=== PATIENT | female | born 1960 | race Caucasian/White ===

== ENCOUNTER → 2020-04-17 10:36 | Outpatient (CLI) | payer OTHER, SELFPAY ==
--- NOTE | ~2020-04-17 | MM_ITS ---
EXAMINATION: MM screening [facility] BI w belinda HISTORY: Screening mammogram TECHNIQUE: Craniocaudal and mediolateral oblique 3-D tomosynthesis images were obtained and synthetic 2-D images were generated. CAD analysis was submitted and interpreted. COMPARISON: 07/13/2018, 02/05/2017 bilateral digital screening mammogram examinations BREAST PARENCHYMAL COMPOSITION: There are scattered areas of fibroglandular density. FINDINGS: There is no evidence of suspicious mass, calcification, or architectural distortion to sugg est malignancy in either breast. There has been no suspicious interval change. IMPRESSION: 1. No mammographic evidence of malignancy. 2. Recommend routine screening mammography in one year. BI-RADS Category 1: Negative Reviewed, dictated and finalized at location A.
== END ==
PROVIDERS: PCP Nurse Practitioner Family; Visit Provider Nurse Practitioner Obstetrics & Gynecology
DX: Z12.31 Encounter for screening mammogram for malignant neoplasm of breast (principal)
CPT/HCPCS: 77063; 77067

== ENCOUNTER → 2020-05-17 14:56 | Outpatient (CLI) | payer OTHER, SELFPAY ==
--- NOTE | ~2020-05-17 | XR_ITS ---
XR knee LT 3V 05/17/2020 15:28 INDICATION: Left knee pain PROCEDURE: 3 views left knee COMPARISON: No prior studies for comparison. FINDINGS: Fracture, dislocation or subluxation is not identified. The soft tissues appear within norm al limits. No foreign bodies are identified. IMPRESSION: 1: NO ACUTE BONE OR JOINT ABNORMALITY IDENTIFIED. Reviewed, dictated and finalized at location B.
== END ==
PROVIDERS: PCP Family Medicine; Visit Provider Family Medicine
DX: M25.562 Pain in left knee (principal)
CPT/HCPCS: 73562

== ENCOUNTER → 2020-07-06 11:01 | Outpatient (CLI) | payer OTHER, SELFPAY ==
--- NOTE | ~2020-07-06 | US_ITS ---
EXAMINATION: US abdomen complete EXAM DATE: 07/06/2020 11:27 INDICATION: Elevated liver enzymes TECHNIQUE: Multiple grayscale and Doppler images of the complete abdomen were obtained (by a technolo gist who performed the scan) and subsequently reviewed. There is no prior study for comparison. FINDINGS: The abdominal aorta is normal in caliber. Visualized portion IVC is patent. The pancreatic head a nd body are normal in appearance. The pancreatic tail is not visualized. The liver has normal echogenicity and contour. There are no focal liver lesions identified. There is no evidence of intrahepatic biliary duct dilation. Portal venous flow was seen in the hepatopedal , normal direction and has normal Doppler waveform. Common bile duct measures 3 mm, which is normal. The gallbladder wall is normal in thickness, with ex pected amount of distention. No sonographic evidence of pericholecystic fluid. There is no cholelit hiases. Technologist performing exam reports patient did not demonstrate sonographic Salazar's sign. Please note that this sign is less reliable in patients who have received pain medication. Right kidney: There is normal contour and echogenicity. It measures 11.4 x 5.2 x 6.5 centimeters. There are no focal renal lesions identified. There is no hydronephrosis. Left kidney: There is normal contour and echogenicity. It measures 11.5 x 5.3 x 5.2 centimeters. T here are no focal renal lesions identified. There is no hydronephrosis. The spleen measures 12 centimeters and is morphologically normal. IMPRESSION: 1. Unremarkable complete abdominal ultrasound exam. Reviewed, dictated and finalized at location B. PATIONAL HEALTH COORDINATOR
== END ==
PROVIDERS: PCP Internal Medicine; Visit Provider Internal Medicine
DX: R74.8 Abnormal levels of other serum enzymes (principal)
CPT/HCPCS: 76700

== ENCOUNTER → 2020-07-19 12:40 | Outpatient (CLI) | payer OTHER, SELFPAY ==
--- NOTE | ~2020-07-19 | MR_ITS ---
EXAMINATION: MR knee LT wo con DATE: 07/19/2020 13:17 INDICATION: Left knee pain TECHNIQUE: Magnetic resonance imaging (MRI) of the left knee was performed without intravenous contra st. Sequences included coronal PD-weighted FSE, coronal PD-weighted FS FSE, sagittal T2-weighted FSE , sagittal PD-weighted FS FSE and axial PD weighted fat saturated FSE. COMPARISON: Left knee radiographs dated 05/17/2020 FINDINGS: Medial compartment: Slight medial extrusion of the medial meniscal body with mild fraying along the inner free edge of th e posterior horn. Partial-thickness cartilage loss along the weightbearing medial femoral condyle and medial tibial plateau. Superimposed deep chondral ulceration with mild subarticular edema at the donny ction of the anterior to central weightbearing medial femoral condyle. Additional mild partial thickn ess fissuring without degenerative subchondral changes at the anterior weightbearing medial femoral c ondyle. Lateral compartment: Lateral meniscus is normal. Partial-thickness cartilage loss with smooth chondral surface along the w eightbearing lateral femoral condyle. Partial thickness cartilage loss with mild chondral surface reg ularity along the posterior aspect the lateral tibial plateau. Preserved cartilage thickness but with deep fissuring at the anterior to central lateral tibial plateau. Patellofemoral compartment: Deep chondral fissuring without degenerative subchondral changes at both the medial and lateral thomas lar facets. There is focal marrow edema along the inferomedial aspect of the patella along what appea rs to be a very small and facet which could be due to overlying chondromalacia or potentially bone co ntusion or medial patellofemoral retinacular injury although the retinaculum itself appears normal an d there is no surrounding soft tissue edema in this is considered less likely. Trochlear cartilage is normal. Ligaments and tendons: Anterior and posterior cruciate ligaments are normal. The medial collateral ligament and fibular viraj ateral ligament complex are normal. The extensor mechanism is normal. The visualized medial and later al hamstring tendons as well as the iliotibial band are normal. Fluid: Small left knee joint effusion. No loose osteochondral bodies identified. Osseous/other: Marrow signal is normal aside from the previous noted subarticular edema at the medial femoral condyl e and edema at the inferomedial patella. No fracture or pathologic marrow replacing process. IMPRESSION: 1. 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 2. Marrow edema at the inferomedial patella which could be related to either overlying high-grade cho ndromalacia at the facet bone contusion. 3. Mild fraying along the inner free edge of the posterior horn of the medial meniscus with slight me dial extrusion of the body. Reviewed, dictated and finalized at location H. X FOAM WORKER IMPRESSION: 1. Mild tricompartmental osteoarthritis with high-grade chondromalacia along th e weightbearing medial femoral condyle and moderate grade chondral malacia in t he lateral and patellofemoral compartments. 2. Marrow edema at the inferomedial patella which could be related to either ov erlying high-grade chondromalacia at the facet bone contusion. 3. Mild fraying along the inner free edge of the posterior horn of the medial m eniscus with slight medial extrusion of the body.
== END ==
PROVIDERS: PCP Internal Medicine; Visit Provider Internal Medicine
DX: M17.12 Unilateral primary osteoarthritis, left knee (principal)
CPT/HCPCS: 73721

== ENCOUNTER 2020-07-31 07:56 | Outpatient (RCR) | payer OTHER, SELFPAY ==
--- NOTE | 2020-07-31 08:44 | PTOPEVAL ---
Thank you for referring Donna Herbert to [facility].? The patient is scheduled to be seen for therapy? ____x/week for ___ weeks. Please review, sign, date and return this plan of care SHERIN. I agree with and certify that the following plan of care is medically necessary. Referring Physician Date Admitting Provider: Attending Provider: Andria Ba MD Referring Provider: *PT Outpatient Evaluation Start: 07/31/20 08:06 Freq: Status: Active Protocol: Document 07/31/20 08:05 PALMER (Rec: 07/31/20 08:43 [facility] [id number]) Therapy Assessment Status Assessment Status Assessment Status Evaluation Evaluation Information Problem Diagnosis L knee pain, DJD, medial mensicus tear Onset 07/24/20 Additional Evaluation Detail LEFS = Subjective Information patient reports she injured Query Text:As Reported By Patient/ her knee sometime in march of Family this year playing pickleball. she reports she did not have any injury during the game, but reports later that night she began having issues getting into bed. she reports she is still playing pickleball and moving around actively. however, she reports she has pain in the L knee when playing, and increased time to complete other activities. patient reports she has increased pain with going down steps. she reports the pain comes and goes. she reports no pain at rest. she reports she also has pain with twisting/pivoting movements of the knee. Prior Level of Function Comments Additional Prior Level of Function prior to injury, patient Comments reports no issues with her knee. she reports beinga ble to play pickleball, work around the house, and go up and down steps frequently. Pain Assessment Timing of Pain Assessment Timing of Pain Assessment Assessment Pain Scale Pain Scale Used Numeric (1 - 10) Self Report Pain Assessment Left Knee(s) Reported Pain Level 0 Lowest Pain Intensity 0 Greatest Pain Intensity 5 Pain Score Pain Score 0: Self Report Intervent
--- NOTE | 2020-10-23 11:09 | PCPTNOTE ---
10/23/20 - patient has not been to therapy in over 2 months. as of this date, patient will be DC'd from skilled PT services and all progress towards goals will be taken from most recent evaluation/note. PALMER
== END 2020-08-09 11:24 | disposition home or self-care (01) ==
LOC: CHSPT 07:56
PROVIDERS: PCP Internal Medicine; Visit Provider Internal Medicine
DX: M17.12 Unilateral primary osteoarthritis, left knee (principal); S83.8X2A Sprain of other specified parts of left knee, initial encounter
CPT/HCPCS: 97110; 97161; 97530

== ENCOUNTER 2020-08-16 11:42 | Outpatient (CLI) | payer OTHER, SELFPAY ==
[2020-08-16 13:12] LABS: SARS-CoV-2 Ag Negative (Negative)
== END 2020-08-16 11:43 | disposition home or self-care (01) ==
LOC: CHSLAB 11:44
PROVIDERS: PCP Internal Medicine; Visit Provider Internal Medicine
DX: R51.9 Headache, unspecified (principal); R09.81 Nasal congestion; Z20.828 Contact with and (suspected) exposure to other viral communicable diseases
CPT/HCPCS: 87426

== ENCOUNTER 2020-11-29 08:54 | Outpatient (CLI) | payer OTHER, SELFPAY ==
[2020-11-29 09:02] LABS: Hematocrit 37.1 % (35.0-49.0); Hemoglobin 12.4 g/dL (12.0-15.0); Mean Corpuscular HGB Conc 33.4 g/dL (32.0-36.0); Mean Corpuscular Hemoglobin 29.9 pg (27.0-31.0); Mean Corpuscular Volume 89.4 fL (78.0-102.0); Mean Platelet Volume 8.3 fl (9.2-11.8); Platelet Count Result 297 K/mm3 (150-420); Red Blood Count 4.15 M/mm3 (4.20-5.40); Red Cell Distribution Width 12.5 % (11.6-14.4); White Blood Count 3.8 K/mm3 (4.8-10.8)
[2020-11-29 09:20] LABS: Band Neutrophils Percent 0 % (0-6); Lymphocytes Absolute Manual 1.36 K/mm3 (1.1-4.5); Lymphocytes Percent Manual 36 % (18-44); Neutrophils Percent Manual 50 % (46-73); Total Cells Counted 100
[2020-11-29 09:21] LABS: Eosinophils Absolute Manual 0.15 K/mm3 (0.02-0.5); Eosinophils Percent Manual 4 % (1-6); Monocytes Absolute Manual 0.38 K/mm3 (0.1-0.90); Monocytes Percent Manual 10 % (3-9); Platelet Estimate Adequate (Adequate)
== END 2020-11-29 08:55 | disposition home or self-care (01) ==
LOC: CHSLAB 08:55
PROVIDERS: PCP Internal Medicine; Visit Provider Internal Medicine
DX: D69.6 Thrombocytopenia, unspecified (principal)
CPT/HCPCS: 36415; 85025

== ENCOUNTER 2021-04-18 08:17 | Outpatient (CLI) | payer OTHER, SELFPAY ==
--- NOTE | ~2021-04-18 | DEXA_ITS ---
Bone Density Report Name: Donna Herbert Age: 61 Sex: Female Ethnicity: White Date of : 1960 Indication: postmenopausal; screening for osteoporosis; height loss; prior fracture; Referring Provider: Andria Ba Study: Bone densitometry was performed. Exam Date: April 18, 2021 Accession number: [id number] Bone Density: Region BMD T-score Z-score Classification AP Spine(L1-L4) 1.251 1.9 3.4 Normal Femoral Neck (Left) 0.860 0.1 1.5 Normal Total Hip (Left) 0.919 -0.2 0.9 Normal World Health Organization criteria for BMD impression classify patients as: Normal (T-score at or above -1.0), Osteopenia (T-score between -1.0 and -2.5), or Osteoporosis (T-score at or below -2.5). 10-year Fracture Risk: FRAX not reported because: All T-scores for Spine Total, Hip Total, Femoral Neck at or above -1.0 Prior hip or vertebral fracture Clinical Information Provided by Patient: Have had a previous hip or vertebral fracture Has had a low trauma fracture Patient maximum height was 67 Menopause Age: 44 No regular weight bearing exercise Does not regularly consume dairy products Drinks caffeinated beverages Onset of menses at age 11 Number of children 1 Impression: The patient has normal bone mass. The patient has risk factors, including: previous fracture. Discussion: INCREASED RISK OF FRACTURE DUE TO HISTORY OF FRACTURE. The patient's previous fracture puts the patient at high risk of a future fracture. In untreated patients, the risk of osteoporotic fracture increases approximately two-fold for each 1.0 SD decrease in T-score. Low bone density is not the only risk factor for fracture; also consider factors such as patient's age, frailty or poor health, risk of falling, risk of injury, previous osteoporotic fracture, family history of osteoporosis, cigarette smoking, low body weight, etc. Not everyone with a low trauma fracture has osteoporosis; osteomalacia and other metabolic bone disorders should also be considered. Patients who have osteoporosis should be evaluated for specific diseases and conditions (secondary causes) that may cause or contribute to bone loss and fracture risk. National Osteoporosis Foundation (NOF) recommends pharmacologic intervention for patients with a prior hip or vertebral fracture regardless of BMD T-score. The patient should follow a healthful lifestyle (good nutrition with adequate calcium and vitamin D, and appropriate weight-bearing exercise). Follow-Up: Consider a repeat BMD and Vertebral Fracture Assessment (VFA) exam in 2 years or sooner if medically necessary, to reassess this patient's status. Reported by: Dr. Ranjit Meza on 04/18/2021 9:01:00 AM. Reviewed, dictated and finalized at location ASuresh SANTIAGO
--- NOTE | ~2021-04-18 | MM_ITS ---
EXAMINATION: MM screening [facility] BI w belinda HISTORY: Screening mammogram TECHNIQUE: Craniocaudal and mediolateral oblique 3-D tomosynthesis images were obtained and synthetic 2-D images were generated. CAD analysis was submitted and interpreted. COMPARISON: 04/17/2020, 07/13/2018, 02/05/2017 BREAST PARENCHYMAL COMPOSITION: There are scattered areas of fibroglandular density. FINDINGS: There is no evidence of suspicious mass, calcification, or architectural distortion to sugg est malignancy in either breast. There has been no suspicious interval change. IMPRESSION: 1. No mammographic evidence of malignancy. 2. Recommend routine screening mammography in one year. BI-RADS Category 1: Negative Reviewed, dictated and finalized at location A.
== END 2021-04-18 08:18 | disposition home or self-care (01) ==
LOC: CHSIMG 08:18
PROVIDERS: PCP Internal Medicine; Visit Provider Internal Medicine
DX: Z78.0 Asymptomatic menopausal state (principal); Z12.31 Encounter for screening mammogram for malignant neoplasm of breast
CPT/HCPCS: 77063; 77067; 77080

== ENCOUNTER → 2022-06-12 14:42 | Outpatient (CLI) | payer OTHER, SELFPAY ==
--- NOTE | ~2022-06-12 | MM_ITS ---
EXAMINATION: MM screening [facility] BI w belinda HISTORY: Screening TECHNIQUE: Craniocaudal and mediolateral oblique 3-D tomosynthesis images were obtained and synthetic 2-D images were generated. CAD analysis was submitted and interpreted. COMPARISON: Comparison to multiple prior studies sequentially, with oldest reviewed study dated 07/01. BREAST PARENCHYMAL COMPOSITION: There are scattered areas of fibroglandular density. FINDINGS: There is no evidence of suspicious mass, calcification, or architectural distortion to sugg est malignancy in either breast. There has been no suspicious interval change. IMPRESSION: 1. No mammographic evidence of malignancy. 2. Recommend routine screening mammography in one year. BI-RADS Category 1: Negative Reviewed, dictated and finalized at location A.
== END ==
PROVIDERS: PCP Internal Medicine; Visit Provider Internal Medicine
DX: Z12.31 Encounter for screening mammogram for malignant neoplasm of breast (principal)
CPT/HCPCS: 77063; 77067

== ENCOUNTER 2023-11-12 14:44 | Outpatient (CLI) | payer OTHER, SELFPAY ==
--- NOTE | ~2023-11-12 | MM_ITS ---
EXAMINATION: MM screening [facility] BI w belinda HISTORY: Screening mammogram TECHNIQUE: Craniocaudal and mediolateral oblique 3-D tomosynthesis images were obtained and synthetic 2-D images were generated. CAD analysis was submitted and interpreted. COMPARISON: 06/12/2022, 04/18/2021 bilateral screening mammogram examinations BREAST PARENCHYMAL COMPOSITION: There are scattered areas of fibroglandular density. FINDINGS: There is suggestion of a new irregular mass with architectural distortion in the anterior l ower inner right breast (craniocaudal Tomosynthesis image 17/74). Diagnostic left mammogram and left breast ultrasound examination are recommended. No suspicious mass or architectural distortion, malignant calcification, skin thickening or retractio n of either breast is noted otherwise. IMPRESSION: 1. Suggestion of new irregular mass with architectural distortion in the anterior lower inner quadran t of the left breast 2. Diagnostic left mammogram and left breast ultrasound examination are recommended. BI-RADS Category 0: Incomplete: Needs additional imaging evaluation. Reviewed, dictated and finalized at location A. IMPRESSION: 1. Suggestion of new irregular mass with architectural distortion in the anteri or lower inner quadrant of the left breast 2. Diagnostic left mammogram and left breast ultrasound examination are recomme nded. BI-RADS Category 0: Incomplete: Needs additional imaging evaluation.
== END 2023-11-12 14:45 ==
PROVIDERS: PCP Internal Medicine; Visit Provider Nurse Practitioner Obstetrics & Gynecology
DX: Z12.31 Encounter for screening mammogram for malignant neoplasm of breast (principal); R92.8 Other abnormal and inconclusive findings on diagnostic imaging of breast
CPT/HCPCS: 77063; 77067

== ENCOUNTER 2023-11-17 10:21 | Outpatient (CLI) | payer OTHER, SELFPAY ==
--- NOTE | ~2023-11-17 | MMUS_ITS ---
EXAMINATION: MM diagnostic rakan LT w belinda, US breast LT limited HISTORY: Follow-up left breast asymmetry TECHNIQUE: Additional 3-D tomosynthesis images of the left breast were performed and synthetic 2-D im ages were generated. CAD analysis was submitted and interpreted. High resolution Limited left breast ultrasound was performed. COMPARISON: Comparison to multiple prior studies sequentially, with oldest reviewed study dated 03/2017. BREAST PARENCHYMAL COMPOSITION: Not dense: There are scattered areas of fibroglandular density. FINDINGS: MAMMOGRAPHIC FINDINGS: Left breast periareolar asymmetry is less dense with spot compression views, compatible with superimp osed fibroglandular tissue. No discrete mass or architectural distortion. No suspicious calcification s. ULTRASOUND: Limited left breast ultrasound: Normal heterogeneous echotexture without focal solid or cystic mass. IMPRESSION: 1. No evidence for malignancy in the left breast. 2. Routine yearly screening mammogram and regular clinical breast examination are recommended. BI-RADS Category 1: Negative Reviewed, dictated and finalized at location A. IMPRESSION: 1. No evidence for malignancy in the left breast. 2. Routine yearly screening mammogram and regular clinical breast examination a re recommended. BI-RADS Category 1: Negative
== END 2023-11-17 10:22 | disposition home or self-care (01) ==
LOC: CHSIMG 10:22
PROVIDERS: PCP Internal Medicine; Visit Provider Nurse Practitioner Obstetrics & Gynecology
DX: R92.8 Other abnormal and inconclusive findings on diagnostic imaging of breast (principal)
CPT/HCPCS: 76642; 77061; 77065; G0279

== ENCOUNTER 2024-10-07 09:31 | Outpatient (CLI) | payer MEDICARE, SELFPAY ==
[2024-10-07 09:46] LABS: Basophils Absolute Auto 0.02 K/mm3 (0.00-0.10); Basophils Percent Auto 0.4 % (0.0-1.0); Eosinophils Absolute Auto 0.09 K/mm3 (0.02-0.50); Hematocrit 36.3 % (35.0-42.0); Hemoglobin 11.9 g/dL (11.7-13.8); Immature Granulocyte Absolute 0.01 K/mm3 (0.00-0.00); Immature Granulocyte Percent A 0.2 % (0.0-0.0); Lymphocytes Absolute Auto 1.55 K/mm3 (1.10-4.50); Lymphocytes Percent Auto 34.5 % (18.0-42.0); Mean Corpuscular HGB Conc 32.8 g/dL (32-36); Mean Corpuscular Hemoglobin 29.4 pg (27.0-31.0); Mean Corpuscular Volume 89.6 fL (78.0-102.0); Mean Platelet Volume 8.4 fl (9.2-11.8); Monocytes Absolute Auto 0.61 K/mm3 (0.10-0.90); Monocytes Percent Auto 13.6 % (2.0-11.0); Neutrophils Absolute Auto 2.21 K/mm3 (1.70-7.20); Neutrophils Percent Auto 49.3 % (50.0-70.0); Platelet Count Result 366 K/mm3 (150-420); Red Blood Count 4.05 M/mm3 (4.20-5.40); Red Cell Distribution Width 12.7 % (11.6-14.4); White Blood Count 4.5 K/mm3 (4.8-10.8)
[2024-10-07 09:50] LABS: Add Urine Microscopic? NO; Appearance Urine Clear (Clear); Bilirubin Urine Negative (Negative); Blood Urine Negative (Negative); Color Urine Light Yellow (Yellow); Glucose Urine UA Negative (Negative); Ketones Urine Negative (Negative); Leukocyte Esterase Ur Negative LEU/UL (Negative); Nitrate Urine Negative (Negative); Protein Urine Negative (Negative); Specific Grav Ur 1.015 (1.010-1.020)
--- OUTSIDE RECORDS SUMMARY | 2024-10-07 10:08 | XMS_ITS | Clinical Summary ---
Author Organization [facility] Address [address] [place] [address] Care Team Providers Care Hot Baller Name Role Phone Unavailable Primary Care Provider Unavailabl e Source Comments [facility],non-owned Affiliates and Associated Physician Practices is amultiple site organization consisting of ambulatory clinics and hospital sitesin [place], [place], [place] and [place]. This disclosure is being madepursuant to the Care Everywhere program and may not contain all information available regarding this patient. Last updated [facility] Allergies No known active allergies Medications * Be aware that medications may not be up to date on this document. Alwaysverify current medications with the patient. Medication Sig Dispensed Refills Start Date End Date Status atorvastatin (LIPITOR) 10 MG tablet TK 1 T PO QD HS 02/03/2020 Active Active Problems Problem Noted Date Diagnosed Date Arthralgia of shoulder 06/04/2012 Arthralgia of hip 01/15/2012 Lumbago 10/06/2011 Pain in extremity 10/06/2011 Immunizations Name Administration Dates Next Due INFLUENZA VACCINE, QUADR. (F LUZONE; FLULAVAL; FLUARIX; AFLURIA QUADRIVALENT; 6MO+), 0.5 ML (IIV4) 07/19/2020 Family History Medical History Relation Name Comments CAD (Coronary Artery Disease) Father CVA Mother Relation Name Status Comments Father Mother Social History Tobacco Use Types Packs/Day Years Used Date Smoking Tobacco: Never Smokeless Tobacco: Never Alcohol Use Standard Drinks/Week Comments Yes 0 (1 standard drink = 0.6 oz pur e alcohol) 1 Sex and Gender Information Value Date Recorded Sex Assigned at Not on file Gender Identity Not on file Sexual Orientation Not on file Plan of Treatment Health Maintenance Due Date Last Done Comments BONE DENSITY TESTING 1960 COLOGUARD (AGES 45-75) - COL ON CA SCREENING 1960 COLON MONITORING 1960 COLONOSCOPY - COLON CA SCREENING 1960 CT COLONOGRAPHY - COLON CA SCREENING 1960 Colorectal Cancer Screening 1960 FIT - COLON CA SCREENING 1960 FLEX SIG - COLON CA SCREENING 1960 MAMMOGRAM 1960 PAP SMEAR 1960 HIV SCREENING 1974 HEPATITIS C SCREENING 04/08/1977 DTAP/TDAP/TD VACCINES (1 - Tdap) 1978 PNEUMOCOCCAL VACCINE 50+ (1 of 1 - PCV) 2009 ZOSTER VACCINE (1 of 2) 2009 COVID-19 VACCINE (1 - 2023-2 5 season) 2024 INFLUENZA VACCINE (#1) 2024 07/19/2020 DEPRESSION SCREENING 08/31/2024 Respiratory Syncytial Virus (RSV) Vaccine Pt: or over 60 yrs (1 - 1-dose 75+ series) 2034 HEPATITIS B VACCINE Aged Out No longe r eligible based on patient's age to complete this topic HIB VACCINE Aged Out No longer eligi ble based on patient's age to complete this topic HPV VACCINE Aged Out No longer eligi ble based on patient's age to complete this topic MENINGOCOCCAL (Group B) VACCINE Aged Out No longer eligible based on patient's age to complete this topic MENINGOCOCCAL VACCINE Aged Out No ceferino cristian eligible based on patient's age to complete this topic
--- OUTSIDE RECORDS SUMMARY | 2024-10-07 10:08 | XMS_ITS | Clinical Summary ---
Author Organization [facility] Address [address] [place] [id number] Care Team Providers Care Optical Fabrication Technician Name Role Phone Andria Ba MD Primary Care Provider [phone] Allergies No known active allergies Medications atorvastatin 10 MG tablet Take 10 mg by mouth nightly at bedtime. Active ibuprofen 200 MG tablet Take 200 mg by mouth every 6 (six) hours as needed for Pain. Active HYDROcodone-donna taminophen 5-325 MG tabletIndicatio ns:Chronic Pain Take 1-2 tablets by mouth every 6 (six) hours as needed for Pain. Indications: Chronic Pain 51 tablet 03/26/2021 Active Active Problems Problem Noted Date Diagnosed Date Arm fracture 03/25/2021 Social History Tobacco Use Types Packs/Day Years Used Date Smoking Tobacco: Never Smokeless Tobacco: Never Alcohol Use Standard Drinks/Week Comments No 0 (1 standard drink = 0.6 oz pur e alcohol) AUDIT-C Answer Date Recorded Frequency of Alcohol Consumption Never 06/10/2019 Average Number of Drinks Not on file 019 Frequency of Binge Drinking Not on file 05/31 Comments No Sex and Gender Information Value Date Recorded Sex Assigned at Not on file Legal Sex Female 4:52 PM CDT Gender Identity Not on file Sexual Orientation Not on file Last Filed Vital Signs Vital Sign Reading Time Taken Comments Blood Pressure 134/69 03/26/2021 4:00 PM CDT Pulse 57 03/26/2021 4:00 PM CDT Temperature 36.1 C (97 F) 03/26/2021 3:00 PM CDT Respiratory Rate 16 03/26/2021 4:00 PM CDT Oxygen Saturation 99% 03/26/2021 4:00 PM CDT Inhaled Oxygen Concentration - - Weight 76.2 kg (168 lb) 03/25/2021 2:34 PM CDT Height 170.2 cm (5' 7 ) 03/25/2021 2:34 PM CDT Body Mass Index 26.31 03/25/2021 2:34 PM CDT Plan of Treatment Health Maintenance Due Date Last Done Comments Colorectal Cancer Screening Colonoscopy (10 Years) 1959 Hepatitis C 1977 DTaP, Tdap and Td Vaccines ( 1 - Tdap) 1978 Mammogram Screening 1999 Zoster Vaccines (1 of 2) 2009 Dexa Scan (General) 2024 Pneumococcal Vaccine: 65+ Years (1 of 1 - PCV) 2024 COVID-19 Vaccine (3 - 2023-2 5 season) 2024 11/30/2020, 11/02/2020 Influenza Adult (#1) 2024 07/19/2020 RSV Immunization or 60+ Years (1 - 1-dose 75+ series) 2034 Meningococcal B Vaccine Aged Out No l onger eligible based on patient's age to complete this topic Meningococcal Vaccine Aged Out No ceferino cristian eligible based on patient's age to complete this topic Pneumococcal Vaccine: Pediatrics (0 to 5 Years) and At-Risk Patients (6 to 64 Years) Aged Out No longer eligible b ased on patient's age to complete this topic RSV Immunizations Under 20 Months Aged Out No longer eligible b ased on patient's age to complete this topic Goals Goal Patient Goal Type Associated Problems Recent Progress Patient-Stated? Author Safety Patient/family will have appropriate support at home upon discharge General No Amita Cheng, [employer] Medical Devices Implanted Type Area Energy Consultant Device Identifier Shelf Expiration Date Model / Serial / Lot Plate Synthes 2.7 Lcp 7h/67mm - [id number] Implanted:Qty: 1 on 03/26/2021 by Andi Méndez MD at [facility] Plate Left: Ulna SYNTHES 249.683 / / N/A Screw Synthes 2.7 Cortical Self Tap 18mm - [id number] Implanted:Qty: 4 on 03/26/2021 by Andi Méndez MD at [facility] Screw Left: Ulna [employer]ES 202.878 / / N/A Screw Synthes 2.7 Cortical Self Tap 20mm - [id number] Implanted:Qty: 1 on 03/26/2021 by Andi Méndez MD at [facility] Screw Left: Ulna [employer]ES 202.880 / / N/A Screw Synthes 2.7 Locking Stardrive 18mm - [id number] Implanted:Qty: 1 on 03/26/2021 by Andi Méndez MD at [facility] Screw Left: Ulna [employer]ES 202.218 / / N/A Screw Synthes 2.4 Locking Stardrive 14mm - [id number] Implanted:Qty: 1 on 03/26/2021 by Kaleb Spain MD at [facility] Screw Left: Radius SYNTHES 02.210.114 / / N/A Screw Synthes 2.4 Locking Stardrive 16mm - [id number] Implanted:Qty: 1 on 03/26/2021 by Kaleb Spain MD at [facility] Screw Left: Radius [employer] 02.210.116 / / N/A Screw Synthes 2.7 Cortical Self Tap 16mm - [id number] Implanted:Qty: 3 on 03/26/2021 by Kaleb Spain MD at [facility] Screw Left: Radius [employer] 202.876 / / N/A Screw Synthes 2.7 Cortical Self Tap 18mm - [id number] Implanted:Qty: 2 on 03/26/2021 by Kaleb Spain MD at [facility] Screw Left: Radius [employer] 202.878 / / N/A Screw Synthes 2.4 Locking Stardrive 18mm - [id number] Implanted:Qty: 2 on 03/26/2021 by Kaleb Spain MD at [facility] Screw Left: Radius [employer] 02.210.118 / / N/A Screw Synthes 2.0 Cortex Stardrive 16mm - [id number] Implanted:Qty: 1 on 03/26/2021 by Andi Méndez MD at [facility] Screw Left: Radius [employer] 201.366.97 / / N/A Screw Synthes 2.0 Cortex Stardrive 18mm - [id number] Implanted:Qty: 1 on 03/26/2021 by Andi Méndez MD at [facility] Screw Left: Ulna [employer] 201.368.97 / / N/A 2.4/2.7 Va-Lcp-2 Cdrp Std 13 Hole Shaft Implanted:Qty: 1 on 03/26/2021 by Kaleb Spain MD at [facility] Left: Radius [employer] 09/30/2028 02.111.691 S / / [id number] Explanted Type Area Energy Consultant Device Identifier Shelf Expiration Date Model / Serial / Lot Drill Bit Synthes 1.8 Qc 110mm - [id number] Explanted:Qty: 1 on 03/26/2021 by Kaleb Spain MD at [facility] Drill Left: Radius [employer]ES 310.509 / / N/A Drill Bit Synthes 1.5 Qc 96mm - [id number] Explanted:Qty: 1 on 03/26/2021 by Andi Méndez MD at [facility] Drill Left: Ulna [employer] 310.507 / / Drill Bit Synthes 2.0 Qc 140mm - [id number] Explanted:Qty: 1 on 03/26/2021 by Andi Méndez MD at [facility] Drill Left: Ulna [employer] 323.062 / / N/A Plate Synthes 2.7 Lcp 8h/76mm - [id number] Explanted:Qty: 1 on 03/26/2021 by Andi Méndez MD at [facility] Plate Left: Ulna [employer] 247.372 / / N/A Description:Implanted, remov ed, wrong size Screw Synthes 2.7 Cortical Self Tap 18mm - [id number] Explanted:Qty: 1 on 03/26/2021 by Andi Méndez MD at [facility] Screw Left: Ulna [employer] 202.878 / / N/A Description:Implanted, remov ed, wrong size Screw Synthes 2.4 Locking Stardrive 16mm - [id number] Explanted:Qty: 1 on 03/26/2021 by Kaleb Spain MD at [facility] Screw Left: Radius [employer] 02.210.116 / / N/A Description:Implanted, remov ed wrong size Insurance [place] OPEN ACCESS [facility] Care Teams Optical Fabrication Technician Relationship Specialty Start Date End Date Andria Ba MD [address] [place] [id number] PCP - General INTERNAL MEDICINE 03/20/21
--- OUTSIDE RECORDS SUMMARY | 2024-10-07 10:08 | XMS_ITS | Data Portability ---
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 Patient will come back in a year unless there are new symptoms. [email or web address] Not available 04/17/2020 10:31:25 05/21/2021 05/21/2021 Annual gynecological exam performed. Patient will come back in a year unless there are new symptoms. Not available 05/20/2021 11:50:13 05/23/2022 05/23/2022 Annual gynecological exam performed. Patient will come back in a year unless there are new symptoms. Not available 05/23/2022 10:50:05 10/08/2023 10/08/2023 Annual gynecological exam performed. Patient will come back in a year unless there are new symptoms. [email or web address] Not available 10/08/2023 09:14:28 Plan of Treatment Reminders Order Date Submit Date Provider Last Modified By Organization Details Last Modified Time Details Appointments None recorded. Lab None recorded. Referral urogynecolo gist referral 2019 020 MARY ELLEN Connelly MD, [address] [facility], [place] [address], [place], [address], 0 13:32:10 Procedures None recorded. Surgeries None recorded. Imaging MAMMO, screening, bilateral 2023 024 MARY ELLEN [facility], [address], [place], [address], 4 07:49:02 Medication Orders None recorded. Patient TargetsNo targets recorded. Patient Instructions Encounter Date Encounter Id Patient Instructions Last Modified By Organization Details Last Modified Time 04/17/2020 [id number] [email or web address] Not available 10:59:17 Reason for Referral Urogynecologist Referral for Urethral hypermobility Trouble emptying bladder, frequent UTI, Some MARCELA. 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 Atrop hic jo montanez rn. Vivian romo effie d by Jakob Tomas am, CT on 2023 at 12:20 PM ----- ----- ----- ----- ----- ----- ----- ----- ----- ----- ----- ----- ----- ----- ----- ----- ----- ---- HPV RESUL TS: HPV mRNA E6/E7 : No HPV mRNA Detec diaz NOTE: This high risk HPV mRNA assay detec ts fourt een high- risk HPV types (16, 18, 31, 33, 35, 39, 45, 51, 52, 56, 58, 59, 66, 68) witho ut diffe renti ation . COMME NT: This speci men was revie wed by a Cytot echno logis t and/o r Patho logis t (as indic ated in this repor t) after evalu ation using the Thinp rep Imagi ng Syste m. CLINI GAMALIEL INFOR MATIO N: Menst rual Statu s: LMP (if appli cable ): Clini gamaliel Histo ry/Pr eviou s Pap: Type of Neopl carmelo (if appli cable ): Signi fican t Clini gamaliel Findi ngs: Other Histo ry: Hormo handy (if appli cable ): PAP EDUCA AMARJIT L NOTE: The Pap Test is a scree rajan test with an inher ent false negat disha rate. Liqui d-bas ed sampl ing may decre ase, but will not elimi phyllis, false negat disha resul ts. A negat disha resul t does not precl ude the prese nce and/o r devel opmen t of disea se, since the prese nce of abnor mal cells in the sampl e depen ds on the locat ion of the lesio n and sampl ing techn ique. Luis Alfredo nued regul ar scree rajan is the best metho d of cance r preve ntion . If repor diaz cytol ogic findi ng do not corre late with physi gamaliel and/o r histo rical findi ngs, furth er inves tigat ion is recom ishan d, as clini gayathri vargas nted. Not Available [facility] (Lab) [address], [place], [address], 10/13/2023 13:24:18 04/18/20 20 04/17/2020 MAMMO , scree rajan, bilat eral No observ ation record ed. [facility] [address], [place], [address], 04/19/2020 23:14:31 11/13/19 24 11/12/2023 MAMMO , scree rajan, bilat eral No observ ation record ed. [facility] [address], [place], [address], 11/17/2023 18:39:34 11/14/19 24 11/12/2023 MAMMO , scree rajan, bilat eral No observ ation record ed. [email or web address] [place] [address] Imaging [address], [place], [address], 09/02/2024 11:56:42 Result Notes None recorded. Problems Name Problem SNOMED Code Status Onset Date Resolution Date Notes Provider Name and Address Organization Details Recorded Time SNOMED CT Concept Completed 201705/20/2021 Encntr for general adult medical exam w/o abnormal findings; Recorded Elsewhere : No Locati on: [facility] So urce: EHR Chron ic: N Practic e ID: [id number] Bill able Time: 09:30:00 AM Danae Estrada [facility] 1 11:21:07 Speciali d medical examinat ion Completed 201305/20/2021 Gynecolog ical Examinati on;Record ed Elsewhere : No Locati on: [facility] So urce: EHR Chron ic: N Practic e ID: [id number] Bill able Time: 10:00:[address] [facility] 11:21:10 Radiolog ic finding [id number] Completed 201405/20/2021 Oth abn and inconclus disha findings on dx imaging of breast;Re corded Elsewhere : No Locati on: [facility] So urce: EHR Chron ic: N Practic e ID: [id number] Bill able Time: 12:34:02 PM Danae Estrada [facility] 1 11:21:00 Screenin g for malignan t neoplasm of rectum Completed 201605/20/2021 Encounter for screening for malignant neoplasm of rectum;Re corded Elsewhere : No Locati on: [facility] So urce: EHR Chron ic: N Practic e ID: [id number] Bill able Time: 10:30:00 AM Danae Estrada [facility] 1 11:21:05 Screenin g for malignan t neoplasm of cervix Completed 201305/20/2021 Screening for malignant neoplasms of the cervix;Re corded Elsewhere : No Locati on: [facility] So urce: EHR Chron ic: N Practic e ID: [id number] Bill able Time: 10:00:00 AM Danae Estrada [facility] 1 11:21:04 Blood leukocyt e number above referenc e range [id number] Completed 201705/20/2021 Elevated white blood cell count, unspecifi ed;Record ed Elsewhere : No Locati on: [facility] So urce: EHR Chron ic: N Practic e ID: [id number] Bill able Time: 09:30:00 AM Danae Estrada [facility] 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 1 11:21:08 Problem Notes None recorded. Procedures Surgical History Date Name Laterality Status Provider Name and Address Organization Details Recorded Time 2 Date of Last Mammogram completed Cori Friend [facility] 10/08/2023 09:20:28 1 Most Recent Bone Density completed [facility] 05/21/2021 11:06:38 8 Date of Last Pap Smear completed [facility] 05/20/2021 11:28:13 4 completed [facility] 05/20/2021 11:29:13 3 Colonoscopy completed [facility] 05/20/2021 11:24:56 2 repair of hip completed [facility] 05/20/2021 11:25:04 Colonoscopy completed [facility] 05/21/2021 11:06:46 Imaging Results Imaging Date Name Status LastModified by Organiz ation Details LastModified Time 04/17/2020 MAMMO, screening, bilateral completed [facility] [address], [place], [address], 04/19/2020 23:14:31 11/12/2023 MAMMO, screening, bilateral completed [facility] [address], [place], [address], 11/17/2023 18:39:34 11/12/2023 MAMMO, screening, bilateral completed [email or web address] [place] [address] Imaging [address], [place], [address], 09/02/2024 11:56:42 Procedure Notes None recorded. Medical Equipment None Reported. Allergies No known drug allergies Medications Name Sig Start Date Stop Date Status Note LastModified by Organization Details LastModified Time atorvasta tin 10 mg tablet TK 1 T PO QD HS active Not Available Not Available No t Available azithromy rudy 250 mg tablet TK 2 TS PO ON DAY 1, THEN TK 1 T PO D FOR 4 DAYS 05/22 completed Not Available Not Available Not Available hydrocodo ne 5 mg-acetam inophen 325 mg tablet TAKE 1-2 TABLETS BY MOUTH EVERY 6 HOURS NEEDED 05/23 completed Not Available Not Available Not Available penicilli n V potassium 500 mg tablet 05/23 completed Not Available Not Available Not Available topiramat e 25 mg tablet TAKE 1 TABLET BY MOUTH EVERY DAY 05/23 completed Not Available Not Available Not Available phentermi ne 37.5 mg tablet 10/08 completed Not Available Not Available Not Available acetamino phen 300 mg-codein e 30 mg tablet 05/23 completed Not Available Not Available Not Available amoxicill in 875 mg tablet TAKE 1 TABLET BY MOUTH TWICE DAILY 05/22 completed Not Available Not Available Not Available diclofena c sodium 75 mg tablet,de layed release TK 1 T PO Q 12 H PRN 05/23 completed Not Available Not Available Not Available methylpre dnisolone 4 mg tablets in a dose pack FOLLOW PACKAGE DIRECTIO NS 05/22 completed Not Available Not Available Not Available albuterol sulfate HFA 90 mcg/actua tion aerosol inhaler INHALE 2 PUFFS INTO THE LUNGS EVERY 6 HOURS 05/23 completed Not Available Not Available Not Available multivita min capsule take 1 capsule by oral route every day 05/23 completed Prescrib ed Elsewher e: Yes Loca tion: [facility] odify By: gaby ladd DateTime : 02/14/20 14 10:00:00 AM Not Available Not Available Not Available fluoxetin e 20 mg capsule 10/08 completed Not Available Not Available Not Available phentermi ne 37.5 mg capsule TAKE 1 CAPSULE BY MOUTH ONCE DAILY BEFORE BREAKFAS T 05/23 completed Not Available Not Available Not Available Calcium-5 00 500 mg (as calcium carbonate 1,250 mg) tablet 05/23 completed Prescrib ed Elsewher e: Yes Loca tion: [facility] odify By: jacky bonilla DateTime : 02/06/20 17 10:30:00 AM Not Available Not Available Not Available escitalop aisha 10 mg tablet 10/08 completed Not Available Not Available Not Available cyclobenz aprine 5 mg tablet TAKE 2 TABLETS BY MOUTH 2 HOURS PRIOR TO DENTAL APPOINTM ENT 05/23 completed Not Available Not Available Not Available biotin 1 mg tablet 05/23 completed Prescrib ed Lnyette e: Yes [facility] odbam By: jacky bonilla DateTime : 02/06/20 10:30:00 AM Not Available Not Available Not Available Prolensa 0.07 % eye drops 10/08 completed Not Available Not Available Not Available Paxlovid 300 mg (150 mg x 2)-100 mg tablets in a dose pack TAKE 2 NIRMATRE LVIR TABLETS AND 1 RITONAVI R TABLET TOGETHER BY MOUTH TWICE DAILY FOR 5 DAYS 05/22 completed Not Available Not Available Not Available Vitals Date Recorded Body height Body mass index (BMI) Body weight Systolic blood pressure Diastolic blood pressure Provider Name and Address Organization Details Last Updated DateTime 05/21/2021 167.64 cm 27.6 kg/m2 10927.3 g 122 mm[Hg] 73 mm[Hg] Danae Estrada [facility] 11:06:24 Date Recorded Body height Body mass index (BMI) Body weight Provider Name and Address Organization Details Last Updated DateTime 05/23/2022 170.18 cm 27.6 kg/m2 58611.26 g Danae Estrada [facility] 05/23/2022 10:50:33 Date Recorded Systolic blood pressure Diastolic blood pressure Provider Name and Address Organization Details Last Updated DateTime 05/23/2022 126 mm[Hg] 78 mm[Hg] Maritza Pool, [facility]- [address], [place], [address], [facility] 05/23/2022 11:50:29 Date Recorded Body height Body mass index (BMI) Body weight Systolic blood pressure Diastolic blood pressure Provider Name and Address Organization Details Last Updated DateTime 04/17/2020 172.72 cm 28.3 kg/m2 09335.18 g 122 mm[Hg] 70 mm[Hg] Teetee Jansen [facility] 0 10:43:28 Social History Question Answer Notes LastModified by Organizat ion Details LastModified Time Tobacco Smoking Status Never Smoker Danae Estrada [facility] 05/23/2022 10:50:49 Do You Have An Advance Directive? No Information n ot available 05/21/2021 What Is Your Level Of Alcohol Consumption? Occasional Information not available 05/21/2021 Are You Blind Or Do You Have Difficulty Seeing? No Information n ot available 05/20/2021 What Is Your Level Of Caffeine Consumption? Moderate Information not available 05/21/2021 How Much Tobacco Do You Chew? None Information not available 05/23/2022 In The 14 Days Before Symptom Onset, Have You Had Close Contact With A Laboratory-confirm ed COVID-19 While That Case Was Ill? No Information n ot available 05/21/2021 In The 14 Days Before Symptom Onset, Have You Had Close Contact With A Person Who Is Under Investigation For COVID-19 While That Person Was Ill? No Information not available 05/21/2021 Have You Been To An Area Known To Be High Risk For COVID-19? No Information not available 05/21/2021 Are You Deaf Or Do You Have Serious Difficulty Hearing? No Information not available 05/20/2021 What Type Of Diet Are You Following? REGULAR Information n ot available 05/20/2021 What Is The Highest Grade Or Level Of School You Have Completed Or The Highest Degree You Have Received? [id number] Information not available 05/21/2021 What Is Your Occupation? Retired Information not available 05/21/2021 Are There Any Guns Present In Your Home? No Information not available 05/21/2021 Do You Use Your Seat Belt Or Car Seat Routinely? Yes Information not available 05/20/2021 Do You Have Smoke And Carbon Monoxide Detectors In Your Home? Yes Information not available 05/20/2021 How Much Tobacco Do You Smoke? No Information not available 05/21/2021 Do You Feel Stressed (tense, Restless, Nervous, Or Anxious, Or Unable To Sleep At Night)? [id number] Information not available 05/21/2021 Do You Use Any Illicit Or Recreational Drugs? No Information not available 05/20/2021 Do You Use Sunscreen Routinely? No Information not available 05/21/2021 Have You Used IV Drugs? No Information not available 05/21/2021 Sex: Unknown Functional Status Question Answer Note LastModified by Organization D etails LastModified Time Are you able to walk? YESWOREST Information not available 05/20/2021 What is your exercise level? Moderate Information not available 05/21/2021 Mental Status None recorded. Family History Relationship Description Onset Age of this Age Resolved Age Notes LastModified by Organization Details LastModified Time Father Congestive heart failure [email or web address] Not available 2023 09:12:30 Father Acute stroke [email or web address] Not avail able 10/08/2023 09:12:30 Father Heart disease [email or web address] Not available 2019 10:32:45 Mother History of hypotension [email or web address] Not available 03/2024 09:12:30 Mother Acute stroke [email or web address] Not avail able 10/08/2023 09:12:30 Mother Aneurysm [email or web address] Not available 10/08/2023 09:12:30 Medical History Condition Response Allergies (Food, seasonal, environmental ) N Other N Breast Cancer N Drug/Latex Allergies/Reactions N Blood Transfusion N Dermatologic Disorders N Lung Disease N Defects or Inherited Disease N Breast Problem N Gestational Diabetes N Hematologic disorders N Anesthesia Complications N History of STI N Deep Vein Thrombosis N Polycystic ovary syndrome N Anxiety Disorder N Autoimmune disease N Arthritis N Infertility N Polyps N Acid Reflux (GERD) N History of abnormal pap N Cancer N Stroke N Varicosities N Neurologic/Epilepsy N Endometriosis N High Cholesterol Y Headaches N Fibromyalgia N Kidney Disease N Heart Problems N Kidney or Bladder Problems N Thyroid Problems N GI Problems N Eating Disorder N Anemia N Art (IVF or FET) N Psychiatric Illness N Ovarian Cancer N Diabetes N Pulmonary (TB, Asthma) N Hepatitis/Liver Disease N Eczema N Urinary Tract Infection N Abuse/Domestic Violence N Asthma N Trauma/Violence N Depression/ depression N Heart Disease N Pre-Eclampsia N Hypertension N Osteoporosis N Thrombophilias N Gynecological History Statement/Question Response Abnormal Pap N Date of Last Mammogram 06/12/2022 On BCP's at Conception? N N Was last menstrual period normal Y STIs/STDs N HPV Vaccine N 03/15/2014 Current Control Method Menopause Age at First Child 31 If Post Menopausal, Age at Menopause 44 Date of Last Colonoscopy Most Recent Bone Density 04/18/2021 Sexually Active? N None Menses Monthly N Age of first menstrual cycle 11 Date of Last Pap Smear 07/13/2018 Sexual Problems? N LMP Unknown N Obstetrics History GPAL:G 1 P 0 0 0 1 Type Value Living 1 Total 1 Past Encounters Encounter ID Performer Location Encounter Start Date Encounter Closed Date Diagnosis/Indication Diagnosis SNOMED-CT Code Diagnosis ICD10 Code Diagnosis Note [id number] Maritza Pool [facility] [address] [address] 04/17/2020 10:26:27 04/17/2020 11:33:17 Gynecologic examination 38937491 Z01.419 Take Calcium with Vitamin D 12-1500mg daily. Do monthly self breast exams. It is advised to get annual flu shot in the fall and she could obtain at [facility] or [facility] clinic. If you haven't received the Tdap vaccine in the last 10 years you should obtain one as well. Have mammogram yearly, bone density every 2-3 years and colonoscop y every 5-10 years depending on findings and history. Engage in daily exercise of low impact aerobic exercise 45-60 minutes 4-5 times weekly. Avoid tobacco and illicit drugs as well as using moderation with alcohol intake less than 1-2 8 oz beverages daily. This lifestyle behavior pattern will lead to less health conditions and longer life span. If BMI greater than 25 weight watchers or dietary consult advised. Questions have been answered. Patient appears to understand instructio ns, but if you have any further questions call or respond to this email Not SA. Same partner. Neg pap/hpv hx Option to defer pap until 63yo unless otherwise indicated per asccp. Last pap 2017 pap/hpv neg. 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 We discussed referral to urogyn for further evaluation [facility] team. Exam some evidence of urethral hypermobil ity, vulvar atrophy. [id number] Maritza Pool [facility] [address] [address] 05/21/2021 10:41:07 05/21/2021 12:36:56 Gynecologic examination 57056362 Z01.419 Take Calcium with Vitamin D 12-1500mg daily. Do monthly self breast exams. It is advised to get annual flu shot in the fall and she could obtain at [facility] or [facility] care clinic. If you haven't received the Tdap vaccine in the last 10 years you should obtain one as well. Have mammogram yearly, bone density every 2-3 years and colonoscop y every 5-10 years depending on findings and history. Engage in daily exercise of low impact aerobic exercise 45-60 minutes 4-5 times weekly. Avoid tobacco and illicit drugs as well as using moderation with alcohol intake less than 1-2 8 oz beverages daily. This lifestyle behavior pattern will lead to less health conditions and longer life span. If BMI greater than 25 weight watchers or dietary consult advised. Questions have been answered. Patient appears to understand instructio ns, but if you have any further questions call or respond to this email Not SA. Same partner. Neg pap/hpv hx Option to defer pap until 63yo unless otherwise indicated per asccp. Last pap 2018 pap/hpv neg. No issues or concerns Dexa-PCP managedCol on PCP managedMam mo-Complet ed wnl [id number] Maritza Pool , [facility] [address] [address] 05/23/2022 10:13:54 05/23/2022 12:15:40 Gynecologic examination [id number] Z01.419 Take Calcium with Vitamin D 12-1500mg daily. Do monthly self breast exams. It is advised to get annual flu shot in the fall and she could obtain at [facility] or [facility] clinic. If you haven't received the Tdap vaccine in the last 10 years you should obtain one as well. Have mammogram yearly, bone density every 2-3 years and colonoscop y every 5-10 years depending on findings and history. Engage in daily exercise of low impact aerobic exercise 45-60 minutes 4-5 times weekly. Avoid tobacco and illicit drugs as well as using moderation with alcohol intake less than 1-2 8 oz beverages daily. This lifestyle behavior pattern will lead to less health conditions and longer life span. If BMI greater than 25 weight watchers or dietary consult advised. Questions have been answered. Patient appears to understand instructio ns, but if you have any further questions call or respond to this email Pap/hpv due 2022 STD Screen declined-n ot SA Genetic Screen discussed Colon Screen PCP Dexa Screen PCP Routine Labs PCPMammo ordered [id number] MICHELLE [facility] [address] [address] 10/08/2023 09:11:00 10/08/2023 09:46:16 Gynecologic examination [id number] Z01.419 Take Calcium with Vitamin D 12-1500mg daily. Do monthly self breast exams. It is advised to get annual flu shot in the fall and she could obtain at [facility] or [facility] care clinic. If you haven't received the Tdap vaccine in the last 10 years you should obtain one as well. Have mammogram yearly, bone density every 2-3 years and colonoscop y every 5-10 years depending on findings and history. Engage in daily exercise of low impact aerobic exercise 45-60 minutes 4-5 times weekly. Avoid tobacco and illicit drugs as well as using moderation with alcohol intake less than 1-2 8 oz beverages daily. This lifestyle behavior pattern will lead to less health conditions and longer life span. If BMI greater than 25 weight watchers or dietary consult advised. Questions have been answered. Patient appears to understand instructio ns, but if you have any further questions call or respond to this email Pap/hpv sentSTD Screen declined-n ot SAGenetic Screen discussedC olon Screen PCPDexa Screen PCPRoutine Labs PCPMammo ordered Screening mammography 24 [id number] Z12.31 Health Concerns Section Related Observation LastModified by Organization Detai ls LastModified Time None Recorded Concern Status LastModified by Organization Details LastModified Time None Recorded Advance Directives Directive N: Payers Encounter Date Sequence Insurance Name Policy Number Policy Suarez Covered Member ID Suarez Member ID Guarantor Name 04/17/2020 1 [employer] - DOS PRIOR TO 21 - [facility] B[employer] [employer] Donna Herbert [id number] Donna Herbert 05/21/2021 1 [employer] - DOS PRIOR TO 21 - [facility] BENEFITS [employer]AN Donna Herbert [id number] Donna Herbert 05/23/2022 1 [employer] - DOS ON OR AFTER 21 - [facility] [facility] (PPO) [id number] Donna Herbert [id number] OI Donna Herbert 10/08/2023 1 [facility] - DOS ON OR AFTER 21 - [facility] BENEF[facility]AN (PPO) [id number] Donna Herbert [id number] OI Donna Herbert Notes Date Note Type Note Provider Name and Address Organization Details Recorded Time 04/17/2020 text/html Annual GYNReported bypatient.Menstru al cycle:Postmenopau se Urinary symptoms:No hematuria; No incontinence; MARCELA, recurrent UTI, trouble emptying bladder Vulva:No genital lesion Vagina:Normal vaginal discharge Breast:No breast pain; No breast lump; No nipple discharge Sexual complaints:No sexual complaints; No pain during intercourse; Normal libido Menopausal Symptoms:No menopausal symptoms; Normal vaginal lubrication Psychological symptoms:No depression; No anxiety; No PMDD Preventive measures:Encourag e self breast examination; Encourage regular exercise; Encourage no tobacco use; Encourage regular mammograms starting age 40; Followed with Q3 year pap smear and high risk HPV typing; Needs to schedule mammogram; Up to date on colonoscopy screening Maritza Pool, MICHELLE- [address], [place], [address], [facility] 04/17/2020 11:03:13 05/21/2021 text/html Annual Assistance Coordinator Post-MenopausalRe ported bypatient.Menopau khoa Symptoms:no menopausal symptoms; normal vaginal lubrication Vaginal Bleeding:history of menopause having occurred; no history of post menopausal bleeding Urinary Symptoms:no hematuria; no incontinence; no nocturia; no urinary frequency Vulva:no genital lesion; no vulvar atrophy Vagina:normal vaginal discharge; no vaginal atrophy Breast:no breast lump; no nipple discharge; no breast pain Sexual Complaints:no sexual complaints Psychological Symptoms:no depression; no anxiety Preventive Measures:encourag e regular mammograms starting age 40; encourage self breast examination; encourage regular exercise; encourage no tobacco use; mammogram performed within the past year; history of recent colonoscopy; Dexa-PCP managed Colon PCP managed Mammo-Completed wnl Maritza Pool [facility] [address], [place], [address], [facility] 05/21/2021 11:23:16 05/23/2022 text/html Annual Assistance Coordinator Post-MenopausalRe ported bypatient.Menopau khoa Symptoms:no menopausal symptoms; normal vaginal lubrication Vaginal Bleeding:history of menopause having occurred; no history of post menopausal bleeding Urinary Symptoms:no hematuria; no incontinence; no nocturia; no urinary frequency Vulva:no genital lesion; no vulvar atrophy Vagina:normal vaginal discharge; no vaginal atrophy Breast:no breast lump; no nipple discharge; no breast pain Sexual Complaints:no sexual complaints Psychological Symptoms:no depression; no anxiety Preventive Measures:encourag e regular mammograms starting age 40; encourage self breast examination; encourage regular exercise; encourage no tobacco use; needs to schedule mammogram; history of recent colonoscopy Maritza Pool [facility] [address], [place], [address], [facility] 05/23/2022 11:53:07 10/08/2023 text/html Annual Assistance Coordinator Post-MenopausalRe ported bypatient.Menopau khoa Symptoms:no menopausal symptoms; normal vaginal lubrication Vaginal Bleeding:history of menopause having occurred; no history of post menopausal bleeding Urinary Symptoms:no hematuria; no incontinence; no nocturia; no urinary frequency Vulva:no genital lesion; no vulvar atrophy Vagina:normal vaginal discharge; no vaginal atrophy Breast:no breast lump; no nipple discharge; no breast pain Sexual Complaints:no sexual complaints Psychological Symptoms:no depression; no anxiety Preventive Measures:encourag e regular mammograms starting age 40; encourage self breast examination; encourage regular exercise; encourage no tobacco use; needs to schedule mammogram; history of recent colonoscopy Maritza Pool [facility] [address], [place], [address], [facility] 10/08/2023 09:46:12 OBGyn Episode Ob Episode Information Episode Created Date Number of Fetuses Patient Bloodtype Patient rh Status Prepregnancy Weight lbs Domestic Partner Domestic Partner Phone Father Name Spray Maker Status 04/17/20 20 1 CLOSED Fetus Data First Name Last Name Admitted to NICU Weight (g) Sex Living Outcome Pediatric Complications Fetus ID Race Codes Race Delivery Type M Full Term [id number] Vaginal Delivery Ever Calculation Initial Ever Date Initial Exam Date Initial Exam Provider Initial Ultrasound Date Last Menstrual Period Date Ultra Sound Weeks Gestation 0 Eighteen To Twenty Week Ever Update Ultra Sound Date Fundal Height At Umbil Quickening Date Ultra Sound Latest Weeks Gestation Final Ever Confirmed By Final Ever Confirmed Date Final Ever Date Ultra Sound Latest Days Gestation 0 0 Menstrual History Last Menstrual Date Menses Monthly On Bcp Conception Prior Menses Frequency Hcg Plus Date Menarche Onset Age Delivery Information Delivery Date Delivery Type Labor Anesthesia Weeks Gestation Incision Type Labor Labor Length Hrs Delivered By Post Complications Tubal Sterilization Discharge Date Comments 2 Discharge Information Feeding Method Contraceptive Method Maternal HG B and HCT Levels
--- OUTSIDE RECORDS SUMMARY | 2024-10-07 10:08 | XMS_ITS | Patient Health Summary ---
Author Organization [facility] Address [address] [place] [address] Care Team Providers Care Account Associate Name Role Phone Unavailable Primary Care Provider Unavailabl e Note from [facility],non-owned Affiliates and Associated Physician Practices is amultiple site organization consisting of ambulatory clinics and hospital sitesin [place], [place]. This disclosure is being madepursuant to the Care Everywhere program and may not contain all information available regarding this patient. Last updated 18.[facility] Allergies No known active allergies Medications * Be aware that medications may not be up to date on this document. Alwaysverify current medications with the patient. * atorvastatin (LIPITOR) 10 MG tablet(Started 02/03/2020) TK 1 T PO QD HS Active Problems Problem Noted Date Diagnosed Date Arthralgia of shoulder 06/04/2012 Arthralgia of hip 01/15/2012 Lumbago 10/06/2011 Pain in extremity 10/06/2011 Immunizations * INFLUENZA VACCINE, QUADR. (FLUZONE; FLULAVAL; FLUARIX; AFLURIA QUADRIVALENT; 6MO+), 0.5 ML (IIV4)(Given 07/19/2020) Social History Tobacco Use Types Packs/Day Years Used Date Smoking Tobacco: Never Smokeless Tobacco: Never Alcohol Use Standard Drinks/Week Comments Yes 0 (1 standard drink = 0.6 oz pur e alcohol) 1 Sex and Gender Information Value Date Recorded Sex Assigned at Not on file Gender Identity Not on file Sexual Orientation Not on file Procedures * NV INSERT NON-INDWELLING BLADDER(Performed 05/16/2020) Performed for Recurrent UTI, Slow urinary stream * CULTURE URINE COMPREHENSIVE(Performed 05/16/2020) Performed for Recurrent UTI, Slow urinary stream * URINALYSIS AUTO - POINT OF CARE (AMB) [facility](Performed 05/16/2020) Performed for Recurrent UTI, Slow urinary stream Results * NV INSERT NON-INDWELLING BLADDER (05/16/2020 12:20 PM CDT) Narrative Sara Hughes Che, MD - 05/16/2020 12:20 PM CDT Sara Hughes Che, MD 05/16/2020 12:21 PM The patient was prepped with betadine (or with hibiclens or other antiseptic agent if allergic to topical iodine). She understood the rationale for the procedure and agreed to the procedure. A 14F short female catheter was then advanced into the urethra and urine was collected for bedside urinalysis as well as a urine culture and/or formal urinalysis as needed. The post void residual is as noted in the progress note, as are results of the dipstick taken. The patient tolerated the procedure well. Sara Hughes MD PROCEDURE/MINOR SURG ICAL ORDERABLES * CULTURE URINE COMPREHENSIVE (05/16/2020 11:36 AM CDT) Culture [facility] Comment: CULTURE, URINE, SPECIAL Micro Number: [id number] Test Status: Final Specimen Source: URINE, CATHETER Specimen Quality: Adequate Result: No Growth Test Performed at: [facility] [id number] ART MARS MD Microbiology URINE SPECIMEN COLLECTION, CATHETERIZED / Unknown 05/16/2020 11:36 AM CDT 05/17/2020 12:03 AM CDT Sara Hughes MD LAB - MICROBIOLOGY [facility] [address] [address] * URINALYSIS AUTO - POINT OF CARE (AMB) [facility] (05/16/2020) Glucose UA neg Bilirubin UA POCT neg Ketones UA POCT neg Specific [place] UA 1.020 Blood Urine POCT neg pH UA 6.0 Protein UA neg Urobilinogen UA 0.2 Nitrite UA neg WBC UA neg Urine URINE / Unknown 05/16/2020 Fa Amber Hughes MD LAB - POINT OF CARE ORDERABLES
--- OUTSIDE RECORDS SUMMARY | 2024-10-07 10:08 | XMS_ITS | Referral Summary ---
Author Organization [facility] Address [address] [address] Care Team Providers Care Thermal Cutting Tracer Machine Operator Name Role Phone Unavailable Primary Care Provider Unavailabl e Source Comments [facility],non-owned Affiliates and Associated Physician Practices is amultiple site organization consisting of ambulatory clinics and hospital sitesin [place], [place], [place] and [place]. This disclosure is being madepursuant to the Care Everywhere program and may not contain all information available regarding this patient. Last updated 18.[email or web address] Allergies No known active allergies Medications * [...] AFLURIA QUADRIVALENT; 6MO+), 0.5 ML (IIV4) 07/19/2020 Social History Tobacco Use Types Packs/Day Years Used Date Smoking Tobacco: Never Smokeless Tobacco: Never Alcohol Use Standard Drinks/Week Comments Yes 0 (1 standard drink = 0.6 oz pur e alcohol) 1 Sex and Gender Information Value Date Recorded Sex Assigned at Not on file Gender Identity Not on file Sexual Orientation Not on file Plan of Treatment Not on file
[2024-10-07 11:31] LABS: Alanine Aminotransferase 24 U/L (14-59); Albumin Level 4.2 g/dL (3.4-5.0); Alkaline Phosphatase 61 U/L (46-116); Anion Gap 12 mmol/L (4-12); Aspartate Amino Transferase 26 U/L (15-37); Bilirubin,Total 0.7 mg/dL (0.00-1.00); Blood Urea Nitrogen 19 mg/dL (7-18); Calcium 9.1 mg/dL (8.5-10.1); Carbon Dioxide 26 mmol/L (21-32); Chloride 104 mmol/L (98-108); Cholesterol 188 mg/dL (0-200); Creatine Kinase 99 U/L (26-192); Estimated Glomerular Filt Rate > 60; Glucose 79 mg/dL (70-99); HDL Direct 66 mg/dL (40-60); LDL Cholesterol Calculated 110 mg/dL (<130); Osmolality Calculated 295 mOsm/kg (285-295); Potassium 4.4 mmol/L (3.5-5.1); Sodium 142 mmol/L (136-145); Total Protein 7.3 g/dL (6.4-8.2); Triglycerides 58 mg/dL (0-150)
== END 2024-10-07 09:32 | disposition home or self-care (01) ==
LOC: CHSLAB 09:33
PROVIDERS: PCP Internal Medicine; Visit Provider Internal Medicine
DX: E78.2 Mixed hyperlipidemia (principal); D69.6 Thrombocytopenia, unspecified; E66.9 Obesity, unspecified
CPT/HCPCS: 36415; 80053; 80061; 81003; 82550; 85025

== ENCOUNTER 2024-11-16 14:02 | Outpatient (CLI) | payer MEDICARE, SELFPAY ==
--- NOTE | ~2024-11-16 | MM_ITS ---
EXAMINATION: MM screening rakan BI w belinda HISTORY: Screening TECHNIQUE: Craniocaudal and mediolateral oblique 3-D tomosynthesis images were obtained and synthetic 2-D images were generated. CAD analysis was submitted and interpreted. COMPARISON: Comparison to multiple prior studies sequentially, with oldest reviewed study dated 07/01. BREAST PARENCHYMAL COMPOSITION: Not dense: There are scattered areas of fibroglandular density. FINDINGS: There is no evidence of suspicious mass, calcification, or architectural distortion to sugg est malignancy in either breast. There has been no suspicious interval change. IMPRESSION: 1. No mammographic evidence of malignancy. 2. Recommend routine screening mammography in one year. BI-RADS Category 1: Negative Reviewed, dictated and finalized at location B.
--- OUTSIDE RECORDS SUMMARY | 2024-11-16 15:40 | XMS_ITS | Clinical Summary ---
Author Organization [facility] Address [address] [place] [address] Care Team Providers Care Wrapper Sizer Name Role Phone Unavailable Primary Care Provider Unavailabl e Source Comments [facility],non-owned Affiliates and Associated Physician Practices is amultiple site organization consisting of ambulatory clinics and hospital sitesin [place], [place], [place] and [place]. This disclosure is being madepursuant to the Care Everywhere program and may not contain all information available regarding this patient. Last updated 18.[facility] Allergies No known active allergies Medications * [...] - COLON CA SCREENING 1959 MAMMOGRAM 1959 HIV SCREENING 1974 HEPATITIS C SCREENING [...] to complete this topic MENINGOCOCCAL (Group B) VACC INE SHARED DECISION-MAKING Aged Out No longer eligibl e based on patient's age to complete this topic MENINGOCOCCAL GROUPS A/C/Y/W VACCINE Aged Out No longer eligible b ased on patient's age to complete this topic
--- OUTSIDE RECORDS SUMMARY | 2024-11-16 15:40 | XMS_ITS | Clinical Summary ---
Author Organization [facility] Address [address] [place] [address] Care Team Providers Care Clinical Psychologist Licensed Name Role Phone Andria Ba MD Primary Care Provider [phone] Allergies No known active allergies Medications atorvastatin [...] Cheng, EBENEZER Medical Devices Implanted Type Area Dump Truck Operator Device Identifier Shelf Expiration Date Model / Serial / Lot Plate Synthes 2.7 Lcp 7h/67mm - [id number] Implanted:Qty: 1 on 03/26/2021 by Andi Méndez MD at [facility] Plate Left: Ulna SYNTHES 249.683 / / N/A Screw Synthes 2.7 Cortical Self Tap 18mm - [id number] Implanted:Qty: 4 on 03/26/2021 by Andi Méndez MD at [facility] Screw Left: Ulna SYNTHES 202.878 / / N/A Screw Synthes 2.7 Cortical Self Tap 20mm - [id number] Implanted:Qty: 1 on 03/26/2021 by Andi Méndez MD at [facility] Screw Left: Ulna SYNTHES 202.880 / / N/A Screw Synthes 2.7 Locking Stardrive 18mm - [id number] Implanted:Qty: 1 on 03/26/2021 by Andi Méndez MD at [facility] Screw Left: Ulna SYNTHES 202.218 / / N/A Screw Synthes 2.4 Locking Stardrive 14mm - [id number] Implanted:Qty: 1 on 03/26/2021 by Kaleb Spain MD at [facility] Screw Left: Radius SYNTHES 02.210.114 / / N/A Screw Synthes 2.4 Locking Stardrive 16mm - [id number] Implanted:Qty: 1 on 03/26/2021 by Kaleb Spain MD at [facility] Screw Left: Radius SYNTHES 02.210.116 / / N/A Screw Synthes 2.7 Cortical Self Tap 16mm - [id number] Implanted:Qty: 3 on 03/26/2021 by Kaleb Spain MD at [facility] Screw Left: Radius SYNTHES 202.876 / / N/A Screw Synthes 2.7 Cortical Self Tap 18mm - [id number] Implanted:Qty: 2 on 03/26/2021 by Kaleb Spain MD at [facility] Screw Left: Radius SYNTHES 202.878 / / N/A Screw Synthes 2.4 Locking Stardrive 18mm - [id number] Implanted:Qty: 2 on 03/26/2021 by Kaleb Spain MD at [facility] Screw Left: Radius SYNTHES 02.210.118 / / N/A Screw Synthes 2.0 Cortex Stardrive 16mm - [id number] Implanted:Qty: 1 on 03/26/2021 by Andi Méndez MD at [facility] Screw Left: Radius SYNTHES 201.366.97 / / N/A Screw Synthes 2.0 Cortex Stardrive 18mm - [id number] Implanted:Qty: 1 on 03/26/2021 by Andi Méndez MD at [facility] Screw Left: Ulna SYNTHES 201.368.97 / / N/A 2.4/2.7 Va-Lcp-2 Cdrp Std 13 Hole Shaft Implanted:Qty: 1 on 03/26/2021 by Kaleb Spain MD at [facility] Left: Radius SYNTHES 09/30/2028 02.111.691 S / / [id number] Explanted Type Area Dump Truck Operator Device Identifier Shelf Expiration Date Model / Serial / Lot Drill Bit Synthes 1.8 Qc 110mm - [id number] Explanted:Qty: 1 on 03/26/2021 by Kaleb Spain MD at [facility] Drill Left: Radius SYNTHES 310.509 / / N/A Drill Bit Synthes 1.5 Qc 96mm - [id number] Explanted:Qty: 1 on 03/26/2021 by Andi Méndez MD at [facility] Drill Left: Ulna SYNTHES 310.507 / / Drill Bit Synthes 2.0 Qc 140mm - [id number] Explanted:Qty: 1 on 03/26/2021 by Andi Méndez MD at [facility] Drill Left: Ulna SYNTHES 323.062 / / N/A Plate Synthes 2.7 Lcp 8h/76mm - [id number] Explanted:Qty: 1 on 03/26/2021 by Andi Méndez MD at [facility] Plate Left: Ulna SYNTHES 247.372 / / N/A Description:Implanted, remov ed, wrong size Screw Synthes 2.7 Cortical Self Tap 18mm - [id number] Explanted:Qty: 1 on 03/26/2021 by Andi Méndez MD at [facility] Screw Left: Ulna SYNTHES 202.878 / / N/A Description:Implanted, remov ed, wrong size Screw Synthes 2.4 Locking Stardrive 16mm - [id number] Explanted:Qty: 1 on 03/26/2021 by Kaleb Spain MD at [facility] Screw Left: Radius SYNTHES 02.210.116 / / N/A Description:Implanted, remov ed wrong size Insurance [employer] OPEN ACCESS [facility] Care Teams Clinical Psychologist Licensed Relationship Specialty Start Date End Date Andria Ba MD [address] [place] [address] PCP - General INTERNAL MEDICINE 03/20/21
== END 2024-11-16 14:03 | disposition home or self-care (01) ==
LOC: ANHIMG 14:04
PROVIDERS: PCP Internal Medicine; Visit Provider Internal Medicine
DX: Z12.31 Encounter for screening mammogram for malignant neoplasm of breast (principal)
CPT/HCPCS: 77063; 77067